=== PATIENT | female | born 1975 | race Caucasian/White ===

== ENCOUNTER 2017-05-16 10:19 | Day surgery (SDC) | payer BC ==
[~2017-05-16 10:19] MED LIST: Buffered Lidocaine 0.9% SYRIN* 5 ML/SYR SYRINGE INTRADERM ONE; Dexamethasone IV* 4 MG/ML 1 ML (4 MG) IV SLOW PU ONE; Famotidine IV* 10 MG/ML 2 ML (20 mg) IV ONE
[2017-05-16] MEDS ORDERED: Dexamethasone IV* 4 MG/ML 1 ML (4 MG) ONE (10:38)
[2017-05-16] MEDS ORDERED: ceFAZolin 2 GM PREMIX(*) 2 GM/50 ML BAG IVPB ONE (10:38)
[2017-05-16] MEDS ORDERED: Famotidine IV* 10 MG/ML 2 ML (20 mg) ONE (10:39)
[2017-05-16] MEDS ORDERED: Buffered Lidocaine 0.9% SYRIN* 5 ML/SYR SYRINGE ONE (10:39)
[2017-05-16] MEDS ORDERED: Bupivacaine 0.25% SDV* 30 ML ONE (11:12)
[2017-05-16] MEDS ORDERED: fentaNYL* 50 MCG/ML 2 ML VIAL (100 MCG VIAL) ONE ×3 (11:12→13:16)
[2017-05-16] MEDS ORDERED: Midazolam* 1 MG/ML 2 ML VIAL (2 MG) ONE (11:12)
[2017-05-16] MEDS ORDERED: Lidocaine 2% PF * 5 ML VIAL ONE (11:27)
[2017-05-16] MEDS ORDERED: Propofol* 10 MG/ML 20 ML BTL IV PUSH ONE (11:27)
[2017-05-16] MEDS ORDERED: fentaNYL* 50 MCG/ML 2 ML VIAL (100 MCG VIAL) IV PRN (11:28)
[2017-05-16] MEDS ORDERED: HYDROcodone/ACETAMIN 5-325 MG* 1 TAB PO PRN (11:28)
[2017-05-16] MEDS ORDERED: PROCHLORPERAZINE INJ 5 MG/ML 2 ML VIAL IV PRN (11:28)
[2017-05-16] MEDS ORDERED: oxyCODONE/Acetamin 5/325 MG* TAB PO PRN (11:28)
[2017-05-16] MEDS ORDERED: Ketorolac INJ* 30 MG/ML 1 ML VIAL ONE (11:57)
[2017-05-16] MEDS ORDERED: Ondansetron INJ* 2 MG/ML VIAL ONE (12:06)
[2017-05-16] MEDS ORDERED: HYDROcodone/ACETAMIN 5-325 MG* 1 TAB ONE (14:10)
[2017-05-16 14:43] VITALS: BP 112/65
--- NOTE | 2017-05-17 00:21 | OP ---
DATE OF OPERATION: 05/16/17 - [facility] DATE OF : 75 SURGEON: Erasto Romero MD ORGANIC CHEMISTRY PROFESSOR: EDEJAY Chan. An special education assistant was needed throughout the entirety of the procedure to aid in retraction and hand positioning and to assist with the reduction. ANESTHESIOLOGIST: Dr. Alfredito Dobson ANESTHESIA: General. PRE-OP DIAGNOSIS: Right displaced fifth metacarpal shaft fracture. POST-OP DIAGNOSIS: Right displaced fifth metacarpal shaft fracture. OPERATIVE PROCEDURE: Open reduction and internal fixation, right fifth metacarpal shaft fracture. INDICATIONS: Nette is 41. She had fractured the hand 2 weeks prior to coming to my office. She had gone on vacation. When she came back from vacation, we talked on the phone and she was unhappy with the position of the finger mostly due to the malrotation, but also due to shortening and very large dorsal bump. We had talked about risks and benefits. She had elected to proceed with open reduction and internal fixation of the right fifth metacarpal fracture. ESTIMATED BLOOD LOSS: 5 mL COMPLICATIONS: None. FINDINGS: As expected, significant shortening. IMPLANTS: Synthes variable angle 1.5 mm plate and screws. DESCRIPTION OF PROCEDURE: Nette was seen in the preoperative holding area where the correct site, side, and procedure were identified. We came back to the operating room where anesthesia was induced and the arm was prepped and draped in the usual fashion. A formal time-out was performed. The arm was exsanguinated with the Esmarch and the tourniquet inflated to 250 mmHg. A curvilinear incision was made over the dorsum of the right fifth metacarpal. Dissection was carried down longitudinally and then care was taken to raise full thickness flaps off the paratenon and to preserve the coursing dorsal sensory cutaneous nerves. Once this was achieved, I went ahead and split the interval between the EDM and the EDC tendons. I made a longitudinal incision through the dorsal periosteum and full thickness flaps were raised. There was soft callus formation. This was released and debrided in its entirety with the use of the napakiak blade, the curettes, and the rongeur. This took quite a bit of time, but ultimately we were able to get back to clean healthy bone edges. The fragments were mobilized. I went ahead at this point and my special education assistant pulled significant traction while we went ahead and reduced the fracture and held it in place with 2 point of reduction clamps. The mini camera was brought in and alignment was checked. It was anatomic alignment. I went ahead and at this point, placed three 1.5 mm countersunk lag screws beginning with the middle lag screw and then placing one more distally and then one more proximally and finally the last one distally. This was holding the reduction and compressing the fragments very nicely. At this point, a 1.5 mm Y- plate was selected and placed. The alignment of the plate was checked fluoroscopically. I then placed 1 screw through the oblong hole in the middle portion to provisionally hold it in place. I liked the positioned and so I went ahead and placed one more cortical screw distally followed by one cortical screw proximally. I checked the final plate position one last time and everything looked good, so I went ahead and filled the remainder of the plate with 2 variable angle cortical screws proximally and one variable angle cortical screw distally, although away from the metacarpal head. I then checked final fluoroscopic images. All the screw lengths looked good. The screws were well away from the joint surfaces. At this point, I went ahead and irrigated out the wound copiously. The periosteal area was closed over the plate with 5-0 Prolene suture with the knots buried. The plate was then covered in its entirety by the periosteal layer. I then went ahead and reapproximated EDC and EDM tendons with 5-0 Prolene suture. The wound was again irrigated and the skin closed with 4-0 nylon suture. The operative area was then infiltrated with 0.25% plain Marcaine. The wound was dressed with Xeroform, 4x4, sterile Webril and ulnar gutter splint was placed, grabbing the ring and small fingers with the hand in the protected position. The tourniquet was then deflated and the hand pinked up immediately. She was then woken up and taken to recovery room in stable condition. [id number]/CPS #: [id number] GÉNESIS
--- NOTE | 2017-05-17 12:49 | RAD ---
CPT II Codes: 6045F INDICATION: Right fifth metacarpal fracture TECHNIQUE: Intraoperative fluoroscopy was provided during plate and screw fixation of the right fifth metacarpal. FINDINGS: 5 spot films depict anatomic alignment of the patient's right fifth metacarpal plate and screw fixator.. Fluoroscopy time: 22 seconds IMPRESSION: As above.
== END 2017-05-16 14:54 | disposition home or self-care (01) ==
LOC: OREAST 10:19
PROVIDERS: ATTEND Orthopaedic Surgery Hand Surgery
DX: S62.326A Displaced fracture of shaft of fifth metacarpal bone, right hand, initial encounter for closed fracture (principal); W01.0XXA Fall on same level from slipping, tripping and stumbling without subsequent striking against object, initial encounter; Y92.008 Other place in unspecified non-institutional (private) residence as the place of occurrence of the external cause
CPT/HCPCS: 76000; 81025; C1713; C1776; J0690; J1100; J1885; J2250; J2405; J2704; J3010

== ENCOUNTER 2019-08-14 12:11 | Inpatient (IN) | payer BC ==
[2019-08-14] MEDS ORDERED: Lactated Ringers 1000 ML Bag* 1,000 ML IV ONE (13:28)
[2019-08-14] MEDS ORDERED: Buffered Lidocaine 1% SYRIN* 1 ML/SYRINGE INTRADERM ONE (13:28)
--- NOTE | 2019-08-14 13:43 | HP ---
General Information - Reason for Visit Here for induction due to GHTN. - General Information Maternal Age: 43 Grav: 3 Para: 0 SAB: 2 IEA: 0 Estimated Due Date: 09/02/19 Determined By: LMP Maternal Blood Type and Rh: O Positive - Results this Serology/RPR Result: Non-Reactive Rubella Result: Immune HBsAg Result: Negative HIV Result: Negative GBS Culture Result: Positive Past Medical History Delivery History: See Records Delivery History Comment: No previous term pregnancies/deliveries Pertinent Past Medical History: See Records Past Medical History Comment: Anxiety Basal cell carcinoma 2016 Pertinent Past Surgical History: See Records Past Surgical History Comment: tonsillectomy 1996 Ovarian cystectomy 1993 Hand sx after fracture 2016 Pertinent Family History: See Records Family History Comment: Epilepsy Colon cancer hyperthyroidism Non Hodgkin's lymphoma [place] Emphysema Diabetes - Antepartal Records Antepartal Records: Reviewed, Complicated by: - GHTN, 24 hr urine 306 Review of Systems Constitutional: Comfortable CV Complaint: No Respiratory: Shortness of Breath: No Gastrointestinal: No Nausea/Vomiting, Normal Bowel Movement Genitourinary: No Dysuria, No Bleeding, No Leaking Fluid Musculoskeletal: No Complaint Neurological: No Headache, No Visual Changes Movement: Normal Exam Allergies/Adverse Reactions: Allergies Tide detergent Allergy (Uncoded 05/16/17 10:50) Rash BP 145/82 Repeat 130/72 T 98.1 HR 101 RR 22 O2 97% - Measurements Height: 5 ft 3 in Weight: 215 lb Weight in lbs: [phone] Body Mass Index (BMI): 38.0 Pre- Weight: 178 lb Weight Gained This : 37 lbs and 0 ozs - Exam Breast: Breast Exam Deferred CVA: No CVA Tenderness Extremities: Edema - +1 bilateral pedal Heart: Normal Rhythm/Heart Sounds HEENT: No Significant Findings Lungs: Clear Bilaterally Rectal: Rectal Exam Deferred Reflexes: DTR 2+ - no clonus Thyroid: - - WNL @ entry to care - Abdominal Exam Abdomen Exam: Non-Tender, Fundal Height Consistent with Dates - Ultrasound/Biophysical Profile Ultrasound Status: Not Done Targeted Exam Findings Estimated Weight: 7.5-8lb Cervical Exam: Closed Effacement: 80% Station: -1 Presenting Part: Vertex Membrane Status: Intact Bleeding/Discharge: None EFM Findings - External Monitor Findings Baseline Heart Rate: 130 External Monitor Findings: Accelerations Present, No Pattern of Variable or Late Decelerations, Variability Moderate Contractions: Regular, Mild - Patient does not feel, < 45 Seconds Contraction Frequency: q 4-5 min Assessment/Plan - Assessment 43 yo here for induction of IUP @ 37+0 for GHTN. IBOW. No evidence metabolic acidemia - Obstetrical Risk Factors Obstetrical Risk Factors: GBS Positive - Plan Plan: Cervical Ripening, Admit - Anticipate Vaginal Delivery Plan Comment: Admit to L&D. PARQ discussion cervical ripening with misoprostal; questions answered and patient in agreement. Will reassess for further doses or consider pitocin augmentation. Initiate GBS prophylaxis when active labor begins. Anticipate SVB. - Date/Time of Admission Date of Admission: 08/14/19 Time of Admission: 13:20
[2019-08-14] MEDS: Misoprostol TAB* 100 MCG ONE (13:48)
[2019-08-14] MEDS ORDERED: Lactated Ringers 1000 ML Bag* 1,000 ML IV SCH (14:00)
[2019-08-14 14:18] LABS: Urine Appearance Clear; Urine Bacteria 1+ (Absent); Urine Bilirubin Negative (Negative); Urine Blood Negative (Negative); Urine Color Amber; Urine Glucose Negative (Negative); Urine Ketones Negative (Negative); Urine Nitrite Negative (Negative); Urine Protein 1+(30 mg/dL) (Negative); Urine Red Blood Cell Trace(0-2/hpf) (Absent); Urine Specific Gravity 1.019 (1.010-1.030); Urine Squamous Epithelial Cell Present (Absent); Urine Urobilinogen Negative (Negative); Urine White Blood Cell Trace(0-5/hpf) (Absent)
[2019-08-14 14:36] LABS: Urine Benzodiazepine Screen None Detected (None Detect); Urine Opiates Screen None Detected (None Detect)
[2019-08-14] MEDS ORDERED: Misoprostol TAB* 100 MCG VAGINAL ONE (17:55)
[2019-08-14] MEDS ORDERED: Misoprostol TAB* 100 MCG ONE ×2 (18:04→22:20)
[2019-08-14] MEDS ORDERED: Nalbuphine* 10 MG/ML 1 ML VIAL IM PRN (20:23)
[2019-08-14] MEDS ORDERED: Promethazine INJ(RESTRICTED)* 25 MG/ML 1 ML VIAL IM PRN (20:23)
--- NOTE | 2019-08-14 22:39 | PN ---
Progress Note - Progress Note Date of Service: 08/14/19 Note: Late entry, note time 1800: S: Feeling comfortable, only mild cramping. Has been walking some. Denies any MORELAND , visual changes or RUQ/epigastric pain. In great spirits, visitors @ bedside. O: VE 1cm/90/vtx -1 FHT 125, +accels, no decels, mod variability single BP 167/97 with repeat 140/82, afebrile UA protein +1 irregula ctx A: IUP @ 37+0 weeks gestation for induction for GHTN Probable PEC Intact membranes No evidence acidemia P: PARQ discussion continued cervical ripening with misoprostal and patient in agreement. Will administer PV. We also discussed planning a third dose in 4 hours if contractions continue to be mild and irregular. Pt in agreement with this plan and then would like to rest overnight We discussed therapeutic rest with nubain/phenergan and PRN order available if desired. Aware that GBS prophylaxis will be initiated with active labor. Will do CMP, uric acid with CBC and type and screen when starting IV. Anticipate SVB.
--- NOTE | 2019-08-15 07:36 | PN ---
Progress Note - Progress Note Date of Service: 08/15/19 Note: S: Patient feeling well this am, got some sleep, mildly crampy. O: VE deferred BP 140/84, T 98.7 UCs q 2-5 min FHT 120 Cat 1 A: IUP @ 37+1 weeks gestation for IOL GHTN, probable PEC No evidence acidemia P: Initiate IV access and draw labs. Discussed possible trial of pitocin for induction; will defer exam and further plan to oncoming tubing machine tender.
[2019-08-15 08:22] LABS: Hematocrit 39 % (35-47); Hemoglobin 12.8 g/dL (12.0-16.0); Mean Corpuscular HGB Conc 33 g/dL (31-36); Mean Corpuscular Hemoglobin 29 pg (27-31); Mean Corpuscular Volume 88 fL (80-97); Red Blood Count 4.38 10^6 /uL (3.70-4.87); Red Cell Distribution Width 14 % (10-15); White Blood Count 8.2 10^3/uL (3.5-10.8)
[2019-08-15 08:37] LABS: Albumin 3.2 g/dL (3.2-5.2); Albumin/Globulin Ratio 1.1 (1-3); BUN/Creatinine Ratio 16.2 (8-20); Calcium 8.7 mg/dL (8.6-10.3); EGFR African American 114.3 (>60); EGFR Non-African American 94.4 (>60); Potassium 3.9 mmol/L (3.5-5.0); Total Bilirubin 0.3 mg/dL (0.2-1.0); Total Protein 6.2 g/dL (6.4-8.9); Uric Acid 5.1 mg/dL (2.3-6.6)
[2019-08-15] MEDS ORDERED: Oxytocin in LR* 20 UNITS/1,000 ML BAG IVPB SCH ×2 (09:00→22:00)
[2019-08-15 09:04] LABS: ABS Basophils 0.1 10^3/ul (0-0.2); ABS Eosinophils 0.1 10^3/ul (0-0.6); ABS Lymphocytes 1.6 10^3/ul (1.0-4.8); ABS Monocytes 0.5 10^3/ul (0-0.8); ABS Neutrophils 5.9 10^3/ul (1.5-7.7); Eosinophil % 1.2 %; Large Platelets Present; Lymphocyte % 20.1 %; Mean Platelet Volume 11.3 fL (7.4-10.4); Nucleated Red Blood Cells % 0.1; Platelet Count 181 10^3/uL (150-450)
--- NOTE | 2019-08-15 09:11 | PN ---
Progress Note - Progress Note Date of Service: 08/15/19 Note: S: Pt able to sleep overnight s/p Nubain/Phenergan. Feeling ready to proceed with induction. Denies MORELAND. No visual changes. No RUQ pain. O: BP 143/89 (overnight BPs 130's-140's/80's-90's) HR 83 RR 18 T 98.1 BP labs WNL FHT: 130bpm. Moderate variability. +Accels. No decels UCs q 2-6, mild VE: 1cm/80%/vtx -2, membranes swept. Dark brown bloody show Verde score 7 LE: 2+ pitting edema in feet bilaterally A: IUP 37-1/7 weeks with gestational hypertension Cervix favorable for induction s/p misoprostol x 3 No evidence of metabolic acidemia P: PARQ IV pitocin. Pt agrees. Will initiate and monitor per protocol. Consider amniotomy PRN. Dr. Ceballos aware of pt presence and condition, agrees with plan
[2019-08-15] MEDS ORDERED: Penicillin G Potassium IV* 5,000,000 UNITS in NS 0.9% 100 ML* 100 ML IVPB ONE (13:20)
[2019-08-15] MEDS ORDERED: Promethazine INJ(RESTRICTED)* 25 MG/ML 1 ML VIAL IV ONE (13:21)
[2019-08-15] MEDS ORDERED: Nalbuphine* 10 MG/ML 1 ML VIAL IV ONE (13:21)
--- NOTE | 2019-08-15 13:28 | PN ---
Progress Note - Progress Note Date of Service: 08/15/19 Note: S: Pt reports some more crampy sensations. Grimaces with UCs but otherwise comfortable. O: BP 152/85 HR 80bpm T 98.1 FHT 130bpm. Moderate variability. +Accels. Rare variable decels with UCs, recover with maternal position changes UCs q 2-3 min, IV pitocin at 14mu/min VE: 2-3cm/80%/vtx -1, AROM attempted. Head well applied. Scant fluid out. ? successful AROM A: IUP at 37-1/7 with gestational hypertension Cat II FHT, doubt metabolic acidemia GBS + P: Given attempted AROM will begin GBS prophylaxis with penicillin G per protocol. Close monitoring of vaginal discharge for possible rupture. Discussed pain relief options. Pt requests repeat dose of Nubain/Phenergan at this time. May desire CEI placement with more active labor.
[2019-08-15] MEDS ORDERED: OBEPIDURAL* 250 ML EPIDURAL ONE (15:55)
--- NOTE | 2019-08-15 16:02 | PN ---
Progress Note - Progress Note Date of Service: 08/15/19 Note: S: Pt requesting labor epidural due to increasing discomfort with UCs. O: BP 147/76 HR 91 RR 16 T 98.7 SpO2 100% on RA FHT 130bpm. Moderate variability. +Accels. No decels UCs q 1.5-2.5 min, IV pitocin at 14mu/min VE 3-4/90%/vtx -1 A: IUP at 37-1/7 with gestational hypertension No evidence of metabolic GBS +, receiving abx prophylaxis P: Anesthesia paged for consult. In presence of pedal edema plan SCDs once epidural placed.
[2019-08-15] MEDS ORDERED: Sodium Citrate/Citric Acid* 15 ML UDC PO PRN (16:26)
[2019-08-15] MEDS ORDERED: EPHEDrine (Pressors)* 50 MG/ML VIAL IV PUSH PRN ×2 (16:26)
[2019-08-15] MEDS ORDERED: Famotidine TAB* 20 MG PO PRN (16:26)
[2019-08-15] MEDS ORDERED: Lactated Ringers 1000 ML Bag* 1,000 ML IV ONE (16:26)
[2019-08-15] MEDS ORDERED: Phenylephrine 40 MCG/ML SYRINGE IV PUSH PRN ×2 (16:26)
--- NOTE | 2019-08-15 16:54 | PN ---
Progress Note - Progress Note Date of Service: 08/15/19 Note: S: Pt comfortable s/p CEI placement O: BP 134/74 HR 85 FHT 130bpm. Moderate variability. Variable decels with UCs UCs q 1.5-2.5, IV pitocin decreased to 8mu/min from 14mu/min VE: 4-5/100%/vtx -1, AROM to clear fluid A: IUP at 37-1/7 in active labor Gestational hypertension Cat II FHT, doubt metabolic acidemia GBS +, receiving abx prophylaxis P: Close monitoring of maternal/ status. Enc rest.
[2019-08-15] MEDS ORDERED: Lactated Ringers 1000 ML Bag* 1,000 ML IV SCH ×2 (17:00→23:00)
[2019-08-15] MEDS ORDERED: OBEPIDURAL* 250 ML EPIDURAL SCH (17:00)
[2019-08-15] MEDS ORDERED: Penicillin G Potassium IV* 2,500,000 UNITS in NS 0.9% 100 ML* 100 ML IVPB SCH (17:40)
--- NOTE | 2019-08-15 19:52 | PN ---
Progress Note - Progress Note Date of Service: 08/15/19 Note: S: Pt resting comfortably in bed. Denies MORELAND. No visual changes. No RUQ pain. Pt' s family asked by RN to leave the room and allow pt to rest. Pt reports feeling much calmer now. O: BP 154/96 HR 101 FHT 145bpm. Moderate variability. Rare variable decels with UCs UCs q 2, IV pitocin at 8mu/min VE: 9cm/100%/vtx +1, clear fluid A: IUP at 37-1/7 in labor Gestational hypertension Cat II FHT - doubt metabolic acidemia GBS +, receiving abx prophylaxis P: Enc rest. Anticipate trial of pushing soon
[2019-08-15] MEDS ORDERED: Misoprostol TAB* 200 MCG ONE ×3 (21:46→22:01)
[2019-08-15] MEDS ORDERED: Lidocaine 1% INJ* 10 MG/ML 30 ML SDV ONE (22:03)
[2019-08-15] MEDS ORDERED: Dibucaine 1% 28.35 GM TUBE PR PRN (22:14)
[2019-08-15] MEDS ORDERED: Acetaminophen TAB* 325 MG PO PRN (22:14)
[2019-08-15] MEDS ORDERED: Glycerin ADULT SUPP PR PRN (22:14)
[2019-08-15] MEDS ORDERED: Witch Hazel PAD* JAR TOPICAL PRN (22:14)
[2019-08-15] MEDS ORDERED: Misoprostol TAB* 200 MCG PR ONE (22:15)
--- NOTE | 2019-08-15 22:26 | PROCNOTE ---
[facility] OB: Delivery Note - Delivery A Date of : 08/15/19 Time of : 21:34 [place] Sex: Female - "Fernando" Score 1 Minute: 8 Score 5 Minutes: 8 Gestational Age in Weeks and Days at Delivery: 37 Weeks and 3 Days Delivery Method: Spontaneous Vaginal Labor: Induced - for gestational hypertension Did Patient attempt ?: N/A, No Previous Amniotic Fluid: Clear Estimated Blood Loss: 400 Anesthesia/Analgesia: IM/IV - in early labor, CEI for Labor - placed by Dr. Sanford Delivered By: Agustina Son - Nursery Level of Nursery: Regular/Bedside - Perineum Perineal Injury: 2nd Degree - repaired with 3-0 Rapide under local infiltration 1% lidocaine and epidural analgesia Perineal Repair: By Delivering Practioner - Events Delivery Events of Note: Pitocin During Labor, Full Course of Antibiotics - for GBS prophylaxis, Post- Bleeding - Meds Given - Additional Delivery Notes Additional Delivery Notes: Pt admitted for induction of labor at 37 weeks due to gestational hypertension. Received misoprostol x 3 doses followed by IV pitocin and amniotomy to clear fluid which led to onset active labor with expected progression to complete. Length of active phase 8 hours, 42 min. Pushed x 1 hour, 20 min. liveborn female. Slow, controlled delivery of head. OA to SANAM. Compound delivery with holding a loop of umbilical cord in her hand at the level of her chin. Shoulders followed easily with maternal push. vigorous with spontaneous cry. HR>110bpm. Delivered to maternal abdomen. Infant with a little loss of tone. Moved to warmer for evaluation by special care nurse. Responded well to tactile stimulation and bulb suction. Apgars 8/8. Moved back to maternal abdomen. Spontaneous delivery intact placenta. Membranes complete. Fundus initially atonic. Firm to massage with one small clot out and IV pitocin infusing. Atonic when hand removed. 800mcg Cytotec per rectum x 1. Fundus firm to massage and remained firm. Repair as above. EBL 400mL. At time of note mother and in stable condition. Planning to breast feed.
[2019-08-16] MEDS: Ibuprofen TAB* 600 MG PO SCH ×5 (03:58→21:46)
[2019-08-16 06:56] LABS: ABS Basophils 0.1 10^3/ul (0-0.2); ABS Lymphocytes 1.5 10^3/ul (1.0-4.8); ABS Monocytes 1.1 10^3/ul (0-0.8); ABS Neutrophils 13.7 10^3/ul (1.5-7.7); Hematocrit 34 % (35-47); Hemoglobin 11.6 g/dL (12.0-16.0); Lymphocyte % 9.2 %; Mean Corpuscular HGB Conc 34 g/dL (31-36); Mean Corpuscular Hemoglobin 30 pg (27-31); Mean Corpuscular Volume 87 fL (80-97); Mean Platelet Volume 11.1 fL (7.4-10.4); Nucleated Red Blood Cells % 0.1; Platelet Count 158 10^3/uL (150-450); Red Blood Count 3.93 10^6 /uL (3.70-4.87); Red Cell Distribution Width 14 % (10-15); White Blood Count 16.4 10^3/uL (3.5-10.8)
[2019-08-16] MEDS ORDERED: Simethicone TAB* 80 MG TAB.CHEW PO SCH (08:30)
[2019-08-16] MEDS ORDERED: Ferrous Gluconate TAB* 324 MG TAB PO SCH (09:00)
[2019-08-16] MEDS: Docusate CAP* 100 MG PO SCH ×3 (09:33→21:46)
[2019-08-16] MEDS ORDERED: Tetan/Diph/Pertus SYR(Tdap)* 0.5 ML SYR(BOOSTRIX) use SYR contains LATEX IM ONE (10:39)
[2019-08-16] MEDS ORDERED: Influenza VAC *QUAD* 2019-20* 0.5 ML SYRINGE IM ONE (10:40)
[2019-08-17] MEDS: Ibuprofen TAB* 600 MG PO SCH ×2 (05:22→13:22)
[2019-08-17 07:54] VITALS: BP 133/79
[2019-08-17] MEDS: Docusate CAP* 100 MG PO SCH ×2 (08:51→13:22)
--- NOTE | 2019-08-17 16:53 | PTEDU ---
Patient Name: POP GAO SIMAPOP selected video: Never Ever Shake a Baby to view on 08/17/2019 at 4:51:34 PM [id number]
--- NOTE | 2019-08-17 17:15 | PTEDU ---
Patient Name: POP GAO POP GAO selected video: Follow Me Mum: [facility] [place] [facility] Successful to view on 08/17/2019 at 5:12:48 PM from [id number]
== END 2019-08-17 18:08 | disposition home or self-care (01) | DRG 560 ==
LOC: MCHOBOUT 12:11 → MCHOB 13:37
PROVIDERS: ADMIT Midwife; ATTEND Midwife
PROC: 10E0XZZ Delivery of Products of Conception, External Approach (ICD-10-PCS; principal; 2019-08-15)
PROC: 3E033VJ Introduction of Other Hormone into Peripheral Vein, Percutaneous Approach (ICD-10-PCS; 2019-08-15)
PROC: 10907ZC Drainage of Amniotic Fluid, Therapeutic from Products of Conception, Via Natural or Artificial Opening (ICD-10-PCS; 2019-08-15)
PROC: 0KQM0ZZ Repair Perineum Muscle, Open Approach (ICD-10-PCS; 2019-08-15)
DX: O13.4 Gestational [pregnancy-induced] hypertension without significant proteinuria, complicating childbirth (principal); Z37.0 Single live birth; O99.344 Other mental disorders complicating childbirth; F41.9 Anxiety disorder, unspecified; O99.824 Streptococcus B carrier state complicating childbirth; O70.1 Second degree perineal laceration during delivery; O32.6XX0 Maternal care for compound presentation, not applicable or unspecified; O76 Abnormality in fetal heart rate and rhythm complicating labor and delivery; O62.2 Other uterine inertia; Z3A.37 37 weeks gestation of pregnancy
CPT/HCPCS: 36415; 80053; 80307; 81003; 81015; 84550; 85025; 86850; 86900; 86901; 87086; 90686; 90715; A9270-GY; J2300; J2540; J2550; S0191